=== PATIENT | female | born 1980 | race Caucasian/White ===

== ENCOUNTER 2017-11-25 09:06 | Outpatient (CLI) | payer OTHER | END 2017-11-25 09:16 | disposition home or self-care (01) | LOC: RX STUDY 09:06 | DX: N89.9 Noninflammatory disorder of vagina, unspecified (principal); N84.0 Polyp of corpus uteri ==

== ENCOUNTER 2021-01-22 06:48 | Day surgery (SDC) | payer OTHER ==
[~2021-01-22 06:48] MED LIST: ZYRTEC10 M3
[2021-01-22] MEDS ORDERED: IBU600 MG PO (10:20)
== END 2021-01-22 13:50 | disposition home or self-care (01) ==
LOC: CIR.AMB 06:48
PROVIDERS: ATTEND Obstetrics & Gynecology Gynecology
DX: N84.0 Polyp of corpus uteri (principal); N72 Inflammatory disease of cervix uteri; Z20.822 Contact with and (suspected) exposure to COVID-19

== ENCOUNTER 2025-02-28 08:00 | Inpatient (IN) | payer OTHER ==
[2025-02-24 12:53] VITALS: BP 112/73
[2025-02-24 13:00] LABS: INR 1.05
[~2025-02-28] VITALS: Ht 160 cm; Wt 60.3 kg
[~2025-02-28 08:00] MED LIST changes: +IBU600 MG PO
[2025-02-28] MEDS ORDERED: BUPIVACAINE HCL/MPF 0.5% 30ML VIAL ONE (09:52)
[2025-02-28] MEDS ORDERED: POVIDONE-IODINE 118 ML BOTT TOP ONE (09:52)
[2025-02-28] MEDS ORDERED: HEMOSTATIC MATRIX 1 KIT KIT TOP ONE ×2 (10:57→11:15)
[2025-02-28] MEDS ORDERED: SURGIFLO APPLICATOR 1 EACH APPL TOP ONE ×2 (10:57→11:15)
[2025-02-28] MEDS ORDERED: SUGAMMADEX SODIUM 200 MG/2 ML VIAL IV ONE (11:44)
[2025-02-28] MEDS ORDERED: RINGERS SOLUTION,LACTATED 1,000 ML IV SCH (12:45)
[2025-02-28] MEDS ORDERED: ONDANSETRON HCL 2 MG/ML VIAL IV PRN (12:45)
[2025-02-28] MEDS ORDERED: MORPHINE SULFATE 4 MG/ML VIAL IV PRN (12:45)
[2025-02-28 16:42] LABS: BASO % 0.5 % (0.1-1.2); EOS # 0.00 (0.04-0.54); EOS % 0.0 % (0.7-7.0); LYMPH # 1.18 (1.18-3.74); LYMPH % 7.6 % (19.3-53.1); MEAN PLATELET VOLUME 10.40 fl (9.4-12.4); MONO # 0.73 (0.24-0.82); MONO % 4.7 % (4.7-12.5); NEUT # 13.42 (1.56-6.13); NEUT % 86.9 % (34.0-71.1); RED CELL DISTRIBUTION WIDTH 14.4 % (11.6-14.4)
[2025-02-28 19:22] VITALS: BP 114/77
[2025-02-28 19:49] LABS: BASO % 0.4 % (0.1-1.2); EOS # 0.00 (0.04-0.54); EOS % 0.0 % (0.7-7.0); LYMPH # 1.32 (1.18-3.74); LYMPH % 10.7 % (19.3-53.1); MEAN PLATELET VOLUME 9.80 fl (9.4-12.4); MONO # 0.66 (0.24-0.82); MONO % 5.4 % (4.7-12.5); NEUT # 10.23 (1.56-6.13); NEUT % 83.3 % (34.0-71.1); RED CELL DISTRIBUTION WIDTH 14.2 % (11.6-14.4)
[2025-03-01] VITALS: BP 99/64
[2025-03-01] MEDS ORDERED: IBU800 MG PO (06:44)
[2025-03-01] MEDS ORDERED: NEURONTIN300 MG PO (06:45)
[2025-03-01] MEDS ORDERED: IRON325 MG PO (06:46)
[2025-03-01 08:50] VITALS: BP 105/69
== END 2025-03-01 13:50 | disposition home or self-care (01) | DRG 743 ==
LOC: CIR.AMB 08:00 → EDSTATUS 11:00 → SURH 11:00 → CIR.AMB 11:00 → O/R 13:32 → OB/GYN 14:24
PROVIDERS: ADMIT Obstetrics & Gynecology Gynecology; ATTEND Obstetrics & Gynecology Gynecology
PROC: 0UT04ZZ Resection of Right Ovary, Percutaneous Endoscopic Approach (ICD-10-PCS; 2025-02-28)
PROC: 0UT54ZZ Resection of Right Fallopian Tube, Percutaneous Endoscopic Approach (ICD-10-PCS; principal; 2025-02-28 13:00)
DX: N80.101 Endometriosis of right ovary, unspecified depth (principal)